=== PATIENT | male | born 1935 | race Caucasian/White ===

== ENCOUNTER 2023-03-16 11:29 | Outpatient (CLI) | payer OTHER, SELFPAY ==
--- NOTE | ~2023-03-16 | CT_ITS ---
EXAMINATION: CT abdomen pelvis wo/w con DATE: 03/16/2023 12:44 INDICATION: Retained ureteral stent. TECHNIQUE: Computed tomography (CT) of the abdomen and pelvis was performed without and with intraven ous contrast using a total of 130 mL Omnipaque-350 intravenous contrast with a double-bolus technique for simultaneous opacification of the renal parenchyma and renal collecting system. Automated exposu re control and iterative reconstruction technique were employed. The dose-length product was 1007.94 mGy-cm. COMPARISON: None FINDINGS: The visualized portions of the lung bases demonstrate mild atelectasis and mild chronic lung disease. No pleural effusion. The heart size is normal. There are coronary artery calcifications. No pericard ial effusion. There is a moderate-sized sliding hiatal hernia. There is mild bilateral gynecomastia. The liver, gallbladder, spleen, pancreas, adrenal glands, and right kidney are normal. There is a 5 m m cyst in left kidney. There is no urolithiasis. There is a suprapubic catheter in expected position. There is diffuse bladder wall thickening. There is a bladder diverticulum on the left with 3 mm ston e. The prostate is moderately enlarged. There are bilateral inguinal hernias containing fat. The uret ers are well opacified and are normal. There are no pathologically enlarged lymph nodes. There is no free intraperitoneal fluid. There is calcified atherosclerosis of the aorta and many of the other art eries. There is an old healed fracture of left iliac wing. There is mild lumbar spondylosis. IMPRESSION: 1. No retained ureteral stent. Suprapubic catheter in expected position. 2. 3 mm stone in a left-sided bladder diverticulum. 3. Diffuse bladder wall thickening, likely secondary to chronic outlet obstruction from the moderatel y enlarged prostate. 4. Moderate-sized sliding hiatal hernia. Reviewed, dictated and finalized at location A. IMPRESSION: 1. No retained ureteral stent. Suprapubic catheter in expected position. 2. 3 mm stone in a left-sided bladder diverticulum. 3. Diffuse bladder wall thickening, likely secondary to chronic outlet obstruct ion from the moderately enlarged prostate. 4. Moderate-sized sliding hiatal hernia.
--- NOTE | ~2023-03-16 | XR_ITS ---
EXAMINATION: XR abdomen/kub 1V DATE: 03/16/2023 12:11 INDICATION: Retained ureteral stent. TECHNIQUE: A supine view of the abdomen was obtained. COMPARISON: None. FINDINGS: There are no dilated loops of bowel. There is a small volume of stool in the colon. There i s no visible ureteral stent. IMPRESSION: 1. No foreign body. Reviewed, dictated and finalized at location A. IMPRESSION: 1. No foreign body.
[2023-03-16 12:22] LABS: Estimated Glomerular Filt Rate > 60
== END 2023-03-16 11:30 | disposition home or self-care (01) ==
PROVIDERS: Visit Provider Nurse Practitioner Adult Health
DX: N21.0 Calculus in bladder (principal); K44.9 Diaphragmatic hernia without obstruction or gangrene; Z96.0 Presence of urogenital implants
CPT/HCPCS: 74018; 74178; Q9967